=== PATIENT | female | born 1960 | race Caucasian/White ===

== ENCOUNTER 2017-04-09 16:31 | Emergency (ER) | payer BC ==
[2017-04-09 17:21] VITALS: BP 137/73
--- NOTE | 2017-04-09 18:13 | UC ---
Knee Pain HPI - HPI Summary HPI Summary: 56 y/o female presents to the urgent care c/o RT knee pain for the past 3 hrs. Patient states she was walking to her car when she heard her RT knee made a popping sound. Then it was difficult to walk and painful. She states the pain has decrease 6/10 and she is able to ambulate more. Patient denies swelling, fever, SOB, chest pain, N/V?D - History of Current Complaint Chief Complaint: UCLowerExtremity Stated Complaint: KNEE INJURY Time Seen by Provider: 04/09/17 17:37 Hx Obtained From: Patient Onset/Duration: Sudden Onset, Lasting Hours, Still Present Severity Initially: Moderate Severity Currently: Moderate Pain Intensity: 6 Pain Scale Used: 0-10 Numeric Character: Sharp Aggravating Factor(s): Weight Bearing Associated Signs And Symptoms: Negative: Swelling, Redness, Fever, Numbness, Tingling Able to Bear Weight: Yes - Risk Factors Gout Risk Factor: Negative - Allergies/Home Medications Allergies/Adverse Reactions: Allergies Allergy/AdvReac Type Severity Reaction Status Date / Time No Known Allergies Allergy Verified 04/09/17 17:21 PMH/Surg Hx/FS Hx/Imm Hx - Additional Past Medical History Additional PMH: sacroiliac sclerosis Endocrine History Of: Reports: Thyroid Disease - Hypothyroidism Denies: Diabetes Cardiovascular History Of: Denies: Cardiac Disorders - MVP, Hypertension, Pacemaker/ICD Respiratory History Of: Denies: COPD, Asthma GI/ History Of: Denies: Ulcer Neurological History Of: Reports: Migraine - Surgical History Surgical History: Yes Surgery Procedure, Year, and Place: 07/2005 hysterectomy. ovarian cysts. 2005-[facility] [place]- (right) carpal tunnel. 08/2000-[facility] [place]- fiberoptic bronchoscopy w/ biopsies,brushings, & lava. mole removal on stomach - Family History Known Family History: Positive: Other - hypothyrodism - Social History Occupation: Employed Full-time Lives: With Family Alcohol Use: Occasionally Substance Use Type: None Smoking Status (MU): Never Smoked Tobacco Review of Systems Constitutional: Negative Skin: Negative Eyes: Negative ENT: Negative Respiratory: Negative Cardiovascular: Negative Gastrointestinal: Negative Genitourinary: Negative Motor: Negative Neurovascular: Negative Musculoskeletal: Other: - RT knee pain Neurological: Negative Psychological: Negative All Other Systems Reviewed And Are Negative: Yes Physical Exam Triage Information Reviewed: Yes Appearance: Well-Appearing, No Pain Distress, Well-Nourished, Obese Vital Signs: Initial Vital Signs Temp 97.4 F 04/09/17 17:12 Pulse 68 04/09/17 17:12 Resp 20 04/09/17 17:12 BP 137/73 04/09/17 17:12 Pulse Ox 99 04/09/17 17:12 Vital Signs Reviewed: Yes Eye Exam: Normal Eyes: Positive: Conjunctiva Clear ENT Exam: Normal ENT: Positive: Normal ENT inspection, Hearing grossly normal, Pharynx normal, TMs normal Dental Exam: Normal Neck exam: Normal Neck: Positive: Supple, Nontender, No Lymphadenopathy Respiratory Exam: Normal Respiratory: Positive: Chest non-tender, Lungs clear, Normal breath sounds Cardiovascular Exam: Normal Cardiovascular: Positive: RRR, No Murmur, Pulses Normal Abdominal Exam: Normal Abdomen Description: Positive: Nontender, No Organomegaly, Soft Musculoskeletal Exam: Normal Musculoskeletal: Positive: Other: - RT posterior knee tenderness on palpation, no eryhthema, no swelling or warm to touch. Decrease ROM upon flexion and extension. Drawer azam negative, Varus and Valgus test: negative. Positive Mc' Murrays test;. positive capillary refill and sensation over the lower extremities. Positive pulses. Neurological Exam: Normal Psychological Exam: Normal Skin Exam: Normal Knee Pain Course/Dx - Course Course Of Treatment: RT knee pain:RT posterior knee tenderness on palpation, no eryhthema, no swelling or warm to touch. Decrease ROM upon flexion and extension. Drawer azam negative, Varus and Valgus test: negative. Positive Mc' Murrays test;.Positive capillary refill and positive pulses over the lower extremity. Patient place on knee immobilizer and advised to rest and place ice. - Differential Dx/Diagnosis Differential Diagnosis/HQI/PQRI: Gout, Phlebitis, Sprain, Strain Provider Diagnoses: Right knee pain Discharge - Discharge Plan Condition: Stable Disposition: HOME Prescriptions: Acetaminophen TAB* [Tylenol TAB*] 650 mg PO Q4H PRN #20 tab PRN Reason: Pain Patient Education Materials: Knee Pain (ED) Forms: *Work Release Referrals: Maggy Andersen MD [Primary Care Provider] - Additional Instructions: Patient placed on knee immobilizer. Advised to take Tylenol to alleviate symptoms and rest for 1-2 days. Please f/u with your PCP is symptoms worsen for further evaluation and treatment.
== END 2017-04-09 18:22 | disposition home or self-care (01) ==
LOC: UCEAST 16:31
DX: M25.561 Pain in right knee (principal); E03.9 Hypothyroidism, unspecified; G43.909 Migraine, unspecified, not intractable, without status migrainosus
CPT/HCPCS: 99213; G0463

== ENCOUNTER 2019-11-27 17:43 | Emergency (ER) | payer BC, OTHER ==
[2019-11-27 18:07] VITALS: BP 129/70
--- NOTE | 2019-11-27 18:09 | UC ---
Throat Pain/Nasal Adam HPI - HPI Summary HPI Summary: 58 y/o female presents to the urgent care c/o Sore throat for the past 4 days. This morning PT had the sensation of feeling something in her throat and she look at the mirror and she noticed her uvula was swollen red w/ a white spot. She drank hot tonya and it was very painful. Pain is swallowing is 8/10. She has taken Tylenol PO to alleviate symptoms. Pt experience also B/L ear itchiness. Pt states low grade fever the first day of symptoms. Pt denies SOB, difficulty breathing or swallowing, rash, dizziness, MILLS, cough, SOB, chest pain, abdominal pain, N/V/D., - History of Current Complaint Chief Complaint: UCGeneralIllness Stated Complaint: SORE THROAT Time Seen by Provider: 11/27/19 18:07 Hx Obtained From: Patient Onset/Duration: Gradual Onset, Lasting Days - 4 days, Still Present, Worse Since - today Severity: Moderate Pain Intensity: 8 Pain Scale Used: 0-10 Numeric Cough: None Associated Signs & Symptoms: Negative: Hoarseness - Allergies/Home Medications Allergies/Adverse Reactions: Allergies Allergy/AdvReac Type Severity Reaction Status Date / Time No Known Allergies Allergy Verified 11/27/19 17:58 Home Medications: Home Medications Acetaminophen [Tylenol Extra Strength] 1,000 mg PO DAILY PRN 11/27/19 [History Confirmed 11/27/19] PMH/Surg Hx/FS Hx/Imm Hx Previously Healthy: Yes Endocrine History: Hypothyroidism - Surgical History Surgical History: Yes Surgery Procedure, Year, and Place: 07/2005 hyste[place]. [place] [place]. [place] [place] w/ biopsies,brushings, & lava. mole removal on stomach - Family History Known Family History: Positive: Other - hypothyrodism Family History: hypothyrodism - Social History Occupation: Employed Full-time Lives: With Family Alcohol Use: Rare Substance Use Type: None Smoking Status (MU): Never Smoked Tobacco Review of Systems All Other Systems Reviewed And Are Negative: Yes Constitutional: Positive: Negative Skin: Positive: Negative Eyes: Positive: Negative ENT: Positive: Sore Throat, Ear Ache - B/l ear discomfort and itching, Other - uvula swollen and red Respiratory: Positive: Negative Cardiovascular: Positive: Negative Gastrointestinal: Positive: Negative Genitourinary: Positive: Negative Motor: Positive: Negative Neurovascular: Positive: Negative Musculoskeletal: Positive: Negative Neurological: Positive: Negative Psychological: Positive: Negative Is Patient Immunocompromised?: No Physical Exam - Summary Physical Exam Summary: VITAL SIGNS: Reviewed. GENERAL: Patient is a well developed and nourished female who is sitting comfortably in the examining table. Patient is not in any acute respiratory distress. HEAD AND FACE: No signs of trauma. No ecchymosis, hematomas or skull depressions. No sinus tenderness. EYES: PERRLA, EOMI x 2, No injected conjunctiva, no nystagmus. No photophobia. EARS: Hearing grossly intact. Ear canals and tympanic membranes are within normal limits. MOUTH: Positive pharynx with erythema, no . NO B/l tonsillar enlargement. Uvula in midline enlarge w/ erythema and swelling and white exudate NECK: Supple, trachea is midline, Positive anterior cervical lymphadenopathy, no JVD, no carotid bruit, no c-spine tenderness, neck with full ROM. No meningeal signs, no Kernig's or brudzinskis signs. CHEST: Symmetric, no tenderness at palpation LUNGS: Clear to auscultation bilaterally. No wheezing or crackles. CVS: Regular rate and rhythm, S1 and S2 present, no murmurs or gallops appreciated. ABDOMEN: Soft, non-tender. No signs of distention. No rebound no guarding, and no masses palpated. Bowel sounds are normal. EXTREMITIES: FROM in all major joints, no edema, no cyanosis or clubbing. NEURO: Alert and oriented x 3. No acute neurological deficits. Speech is normal and follows commands. SKIN: Dry and warm Triage Information Reviewed: Yes Vital Signs: Initial Vital Signs Temp 98.8 F 11/27/19 18:02 Pulse 76 11/27/19 18:02 Resp 15 11/27/19 18:02 BP 129/70 11/27/19 18:02 Pulse Ox 100 11/27/19 18:02 Throat Pain/Nasal Course/Dx - Course Course Of Treatment: 58 y/o female presents to the urgent care c/o Sore throat for the past 4 days. This morning PT had the sensation of feeling something in her throat and she look at the mirror and she noticed her uvula was swollen red w/ a white spot. She drank hot tonya and it was very painful. Pain is swallowing is 8/10. She has taken Tylenol PO to alleviate symptoms. Pt experience also B/L ear itchiness. Pt states low grade fever the first day of symptoms. Pt denies SOB, difficulty breathing or swallowing, rash, dizziness, MILLS, cough, SOB, chest pain, abdominal pain, N/V/D.,Hx obtained. Pt is uvulitis on examination, Rapid strep: negative. Throat culture sent to lab. Pt will be notified of any abnormal result. Rx Amoxicillin PO and and advised to continue Tylenol PO for pain and swelling. PT Advised on hand washing to avoid spreading. Also advised to rest, eat well and avoid strenuous exercise. If symptoms do not improve or worsen advised to return to the urgent care or f/u with her PCP for further evaluation and treatment. D/C instructions explained. PT understood and agreed w/ plan of care. - Differential Dx/Diagnosis Differential Diagnosis/HQI/PQRI: Laryngitis, Otitis Media, Peritonsillar Abscess , Pharyngitis, URI, Other - uvulitis Provider Diagnosis: Uvulitis Discharge ED - Sign-Out/Discharge Documenting (check all that apply): Patient Departure - D/C home All imaging exams completed and their final reports reviewed: No Studies - Discharge Plan Condition: Stable Disposition: HOME Prescriptions: Amoxicillin PO (*) [Amoxicillin 875 MG (*)] 875 mg PO BID #20 tab Patient Education Materials: Uvulitis (ED) Referrals: Maggy Andersen MD [Primary Care Provider] - 3 Days Additional Instructions: 1- Please take the full course of the antibiotic to avoid resistance.Take yogurts w/ probiotics or Culturelle to protect your GI system 2-Please take Tylenol PO q6-8hrs prn as instructed after meals to alleviate pain and swelling. Increase fluid intake, eat well, rest and avoid strenuous exercise 3-If symptoms do not improve or worsen please return to the urgent care or f/u with your PCP in 3 days for further evaluation and treatment. 4- Throat culture was sent to lab. You will be notified of any abnormal results - Billing Disposition and Condition Condition: STABLE Disposition: Home
== END 2019-11-27 19:02 | disposition home or self-care (01) ==
LOC: UCCORT 17:43
DX: K12.2 Cellulitis and abscess of mouth (principal)
CPT/HCPCS: 87070; 87651; 99212; G0463

== ENCOUNTER 2019-11-30 08:22 | Emergency (ER) | payer OTHER ==
[2019-11-30 08:37] VITALS: BP 132/84
--- NOTE | 2019-11-30 09:20 | UC ---
General HPI - HPI Summary HPI Summary: States she has had about 8 days of a sore throat. Was seen here on 11/27 and was given Amoxicillin and had a negative rapid strep. Sometimes are gradually improving. Feels her uvula is not as swollen but it stings with food and now she has referred pain to her right ear. No fever. mild congestion. She has been around her grandkids who have been sick with URI symptoms. Able to tolerate solids and liquids, just painful. Meds; reviewed - History of Current Complaint Chief Complaint: UCEar Stated Complaint: UVULA PAIN Time Seen by Provider: 11/30/19 09:04 Hx Last Menstrual Period: 2004 Pain Intensity: 7 - Allergy/Home Medications Allergies/Adverse Reactions: Allergies Allergy/AdvReac Type Severity Reaction Status Date / Time No Known Allergies Allergy Verified 11/30/19 08:38 Home Medications: Home Medications Cholecalciferol TAB* [Vitamin D TAB*] 2,000 units PO DAILY 11/30/19 [History Confirmed 11/30/19] Levothyroxine TAB* [Synthroid TAB*] 50 mcg PO DAILY 11/30/19 [History Confirmed 11/30/19] PMH/Surg Hx/FS Hx/Imm Hx Previously Healthy: Yes Endocrine History: Hypothyroidism - Surgical History Surgical History: Yes Surgery Procedure, Year, and Place: 07/2005 hysterectomy. ovarian cysts. 2005-[facility] [place]- (right) carpal tunnel. 08/2000-[facility] [place]- fiberoptic bronchoscopy w/ biopsies,brushings, & lava. mole removal on stomach - Family History Known Family History: Positive: Other - hypothyrodism Family History: hypothyrodism - Social History Alcohol Use: Rare Substance Use Type: None Smoking Status (MU): Never Smoked Tobacco Review of Systems All Other Systems Reviewed And Are Negative: Yes ENT: Positive: Sore Throat, Ear Ache Physical Exam Triage Information Reviewed: Yes Appearance: Well-Appearing Vital Signs: Initial Vital Signs Temp 98.6 F 11/30/19 08:31 Pulse 77 11/30/19 08:31 Resp 18 11/30/19 08:31 BP 132/84 11/30/19 08:31 Pulse Ox 99 11/30/19 08:31 Vital Signs Reviewed: Yes ENT: Positive: Pharyngeal erythema, Other - right TM: mild erythema, non bulging , no fluid. uleractions in posterior oropharynx Neck: Positive: Supple, Nontender Respiratory: Positive: Lungs clear Cardiovascular: Positive: RRR, No Murmur Skin Exam: Normal Course/Dx - Course Course Of Treatment: This is a 58 yr old with throat pain Rapid strep on last visit was negative No significant improvement on more than 2 days of amoxicillin Suspect this is Coxsackie virus Recommend maalox and benadryl swish and spit to comfort/relief Ibuprofen as needed for pain - take as directed with food Stop Antibiotics - Amoxicillin Recommend if symptoms are not improving to follow up with ENT next week If symptoms persist or worsen over the next few days, follow up with PCP or return to urgent care - Diagnoses Provider Diagnosis: Coxsackie virus disease Discharge ED - Sign-Out/Discharge Documenting (check all that apply): Patient Departure All imaging exams completed and their final reports reviewed: No Studies - Discharge Plan Condition: Good Disposition: HOME Patient Education Materials: Hand, Foot, and Mouth Disease (ED) Referrals: Maggy Andersen MD [Primary Care Provider] - Additional Instructions: Recommend maalox and benadryl swish and spit to comfort/relief Ibuprofen as needed for pain - take as directed with food Stop Antibiotics - Amoxicillin Recommend if symptoms are not improving to follow up with ENT next week If symptoms persist or worsen over the next few days, follow up with PCP or return to urgent care - Billing Disposition and Condition Condition: GOOD Disposition: Home
== END 2019-11-30 09:23 | disposition home or self-care (01) ==
LOC: UCCORT 08:22
DX: B34.1 Enterovirus infection, unspecified (principal); H92.01 Otalgia, right ear; H73.891 Other specified disorders of tympanic membrane, right ear; E03.9 Hypothyroidism, unspecified; Z79.890 Hormone replacement therapy
CPT/HCPCS: 99211; G0463

== ENCOUNTER 2023-12-21 06:20 | Observation (INO) ==
[2023-12-21] MEDS ORDERED: Lidocaine 2% PF 5 ML VIAL ONE (06:57)
[2023-12-21] MEDS ORDERED: Propofol 10 MG/ML 20 ML BTL ONE ×4 (06:58→10:49)
[2023-12-21] MEDS ORDERED: Phenylephrine IV 10 MG/ML 1 ml VIAL ONE (06:58)
[2023-12-21] MEDS ORDERED: ceFAZolin 2 GM in NS PREMIX 2 GM/100 ML BAG IVPB ONE (07:31)
[2023-12-21] MEDS ORDERED: Famotidine IV 10 MG/ML 2 ml VIAL (20 mg) ONE (07:31)
[2023-12-21] MEDS ORDERED: Tranexamic Acid 1 GM/100ML BAG 2,000 MG/200 ML BAG IV ONE (07:31)
[2023-12-21] MEDS: Famotidine IV 10 MG/ML 2 ml VIAL (20 mg) IV ONE (07:45)
[2023-12-21 07:51] LABS: Rapid COVID-19 Molecular Undetected (Undetected)
[2023-12-21] MEDS ORDERED: ROPIVACAINE 5 MG/ML 30 ML BTL (0.5%) ONE ×2 (08:20→09:17)
[2023-12-21] MEDS ORDERED: Midazolam 5 mg/5 ml VIAL 1 mg/ml 5 ml VIAL (5 mg) ONE (08:20)
[2023-12-21] MEDS ORDERED: fentaNYL 100 mcg/2 ml 50 MCG/ML VIAL ONE (08:20)
[2023-12-21] MEDS ORDERED: fentaNYL 100 mcg/2 ml 50 MCG/ML VIAL IV PRN (09:38)
[2023-12-21] MEDS ORDERED: Naloxone 0.4 mg VIAL 0.4 mg/ml 1 ml VIAL IV PRN (09:38)
[2023-12-21] MEDS ORDERED: HYDROmorphone 1 MG/1 ML SYRINGE IV PRN (09:38)
[2023-12-21] MEDS ORDERED: Acetaminophen IV 1 GM/100ML 0 MG/0 ML BAG IV ONE (09:49)
[2023-12-21] MEDS ORDERED: Glycopyrrolate IV 0.2 MG/ML 1 ML VIAL ONE (09:54)
[2023-12-21] MEDS ORDERED: Dexamethasone IV 4 MG/ML VIAL 1 ml VIAL ONE ×2 (10:08→13:27)
[2023-12-21] MEDS ORDERED: Ondansetron 4 mg VIAL 2 MG/ML 2 ml VIAL ONE ×2 (10:08→13:27)
[2023-12-21] MEDS ORDERED: Phenylephrine 40 mcg/mL 10mL (400mcg) SYRINGE ONE (10:10)
[2023-12-21] MEDS ORDERED: Prochlorperazine 5 mg/ml 2 ml VIAL (10 mg) IV PRN (10:20)
[2023-12-21] MEDS ORDERED: Lactulose 30 ml UDC PO PRN (10:20)
[2023-12-21] MEDS ORDERED: Morphine 2 MG/ML SYRINGE IV PRN (10:20)
[2023-12-21] MEDS ORDERED: Magnesium Hydroxide LIQ 30 ML UDC PO PRN (10:20)
[2023-12-21] MEDS: Buffered Lidocaine 1% SYRIN 1 ml INTRADERM ONE (11:38)
[2023-12-21] MEDS: Lactated Ringers 1000 ml BAG 1,000 ML IV SCH ×2 (11:38→14:04)
[2023-12-21] MEDS ORDERED: Bupivacaine-MPF SPINAL 7.5 MG/ML - 2ML AMP ONE (13:23)
[2023-12-21] MEDS: ceFAZolin 1 GM ADVAN 1 GM in NS 0.9% 50 ML 50 ML IVPB SCH (17:49)
[2023-12-21] MEDS: Magnesium Hydroxide LIQ 30 ML UDC PO SCH (21:45)
[2023-12-22 06:22] LABS: Hematocrit 31.4 % (35-45); Hemoglobin 10.8 g/dL (11.5-14.3); Mean Platelet Volume 9.8 fL (7.5-11.2); Platelet Count 136 10^3/uL (150-450)
[2023-12-22 06:44] LABS: Calcium 8.8 mg/dL (8.6-10.3); Creatinine, Serum 0.7 mg/dL (0.51-0.95); Potassium 4.1 mmol/L (3.5-5.0); eGFR CKD-EPI 97.1 (>60)
[2023-12-22] MEDS: Vitamin THERAPEUTIC TAB PO SCH (08:15)
[2023-12-22 09:52] VITALS: BP 108/70
== END 2023-12-22 11:40 | disposition home or self-care (01) ==
LOC: AA 06:20 → INTOOBSV 06:20 → SSU 13:52
PROVIDERS: ADMIT Orthopaedic Surgery Adult Reconstructive Orthopaedic Surgery; ATTEND Orthopaedic Surgery Adult Reconstructive Orthopaedic Surgery